=== PATIENT | male | born 1965 | race Caucasian/White ===

== ENCOUNTER 2017-10-06 05:58 | Inpatient (IN) | payer OTHER, MEDICAID ==
[~2017-10-06] VITALS: Ht 175.3 cm; Wt 97.7 kg
[2017-10-06] MEDS ORDERED: AMLO-511 PO (06:21)
[2017-10-06] MEDS ORDERED: FINA5TAB41 PO (06:21)
[2017-10-06 06:50] LABS: BASOPHILS % (AUTO) 0.4 % (0.0-2.0); EOSINOPHILS % (AUTO) 0.2 % (1.0-6.0); HEMATOCRIT 46.7 % (41-53); HEMOGLOBIN 16.3 g/dL (13.5-17.5); LYMPHOCYTES # (AUTO) 0.6 K/uL (1.0-4.8); LYMPHOCYTES % (AUTO) 7.9 % (22.0-44.0); MEAN CORPUSCULAR VOLUME 89 fL (80-100); MONOCYTES # (AUTO) 0.5 K/uL (0.1-1.0); MONOCYTES % (AUTO) 6.5 % (2.0-9.0); NEUTROPHILS # (AUTO) 6.8 K/uL (1.8-7.7); PLATELET COUNT (AUTO) 282 K/uL (150-450); RED BLOOD CELL COUNT(AUTO) 5.28 MIL/uL (4.50-5.90); RED CELL DISTRIBUTION WIDTH 13.4 % (11.5-14.5)
[2017-10-06 07:03] LABS: ANION GAP 11 mmol/L (8-16); CALCIUM, TOTAL 9.2 mg/dL (8.8-10.5); CARBON DIOXIDE 24 mmol/L (22-29); CHLORIDE 106 mmol/L (98-107); CREATININE 1.23 mg/dL (0.60-1.30); GLOMERULAR FILTR. RATE CALC > 60 mL/min (>60); GLUCOSE,RANDOM 118 mg/dL (70-110); POTASSIUM 3.5 mmol/L (3.5-5.1); SODIUM SERUM 141 mmol/L (136-145); UREA NITROGEN, BLOOD 12 mg/dL (7-18)
[2017-10-06 07:08] LABS: ALANINE AMINOTRANSFERASE 39 U/L (12-78); ALBUMIN 4.5 g/dL (3.4-5.0); ALKALINE PHOSPHATASE 111 U/L (46-116); ASPARTATE AMINOTRANSFERASE 32 U/L (15-37); BILIRUBIN,TOTAL 0.6 mg/dL (0.1-1.0); TOTAL PROTEIN, SERUM 9.3 g/dL (6.4-8.2)
[2017-10-06 07:10] LABS: SALICYLATE < 2.8 mg/dL (2.8-20.0)
[2017-10-06 07:20] LABS: AMMONIA 28 umol/L (11-32)
[2017-10-06 07:21] LABS: ACETAMINOPHEN < 2 mcg/mL (10-30); TROPONIN I < 0.02 ng/mL (0.00-0.05)
[2017-10-06 07:34] LABS: B-TYPE NATRIURETIC PEPTIDE 41 pg/mL (0-100)
[2017-10-06 09:06] LABS: AMPHET/METH SCREEN,URINE NEGATIVE (NEGATIVE); BARBITURATE SCREEN, URINE NEGATIVE (NEGATIVE); BENZODIAZEPINES SCREEN,URINE NEGATIVE (NEGATIVE); CANNABINOID SCREEN,URINE NEGATIVE (NEGATIVE); COCAINE SCREEN,URINE NEGATIVE (NEGATIVE); METHADONE SCREEN, URINE NEGATIVE (NEGATIVE); OPIATE SCREEN,URINE NEGATIVE (NEGATIVE)
[2017-10-06 09:07] LABS: PHENCYCLIDINE SCREEN,URINE NEGATIVE (NEGATIVE)
[2017-10-06 09:17] LABS: APPEARANCE,URINE CLOUDY (CLEAR); BILIRUBIN,URINE NEGATIVE (NEGATIVE); GLUCOSE, URINE (UA) NEGATIVE (NEGATIVE); KETONES,URINE NEGATIVE (NEGATIVE); LEUKOCYTE ESTERASE ,URINE NEGATIVE (NEGATIVE); NITRATE,URINE POSITIVE (NEGATIVE); OCCULT BLOOD,URINE MODERATE (NEGATIVE); PROTEIN,URINE POS 1+ (NEGATIVE); UROBILINOGEN,URINE 0.2 mg/dL (<=1.0)
[2017-10-06 09:30] LABS: WBC,URINE 0-2 /HPF (0-5)
[2017-10-06 09:31] LABS: BACTERIA,URINE Many /HPF (None Seen)
[2017-10-06] MEDS: HALOPERIDOL 5 MG TABLET PO ONE ×2 (09:52→10:55)
[2017-10-06] MEDS: DiphenhydrAMINE HCL 25 MG CAPSULE PO ONE ×2 (09:52→10:55)
[2017-10-06] MEDS: LORazepam 2 MG TABLET PO ONE ×2 (09:52→10:55)
[2017-10-06] MEDS ORDERED: LORazepam 2 MG/ML VIAL IM ONE (10:45)
[2017-10-06] MEDS ORDERED: HALOPERIDOL LACTATE 5 MG/ML VIAL IM ONE (10:45)
[2017-10-06] MEDS ORDERED: DiphenhydrAMINE HCL 50 MG/ML VIAL IM ONE (10:45)
[2017-10-06] MEDS ORDERED: CIPROFLOXACIN HCL 250 MG TABLET PO ONE (11:00)
[2017-10-07 05:06] LABS: CHOL/HDL RATIO 3.8 (4.2-7.3)
[2017-10-08 01:30] VITALS: BP 141/81
[2017-10-08] MEDS ORDERED: ONDANSETRON HCL 4 MG TABLET PO PRN (08:45)
[2017-10-08] MEDS ORDERED: BACITRACIN 28.4 GM OINTMENT TP PRN (08:45)
[2017-10-08] MEDS ORDERED: CloNIDine HCL 0.1 MG TABLET PO PRN (08:45)
[2017-10-08] MEDS ORDERED: BENZOCAINE/MENTHOL LOZENGE MM PRN (08:45)
[2017-10-08] MEDS ORDERED: PETROLATUM,WHITE 71 GM JELLY TP PRN (08:45)
[2017-10-08] MEDS ORDERED: MAG HYDROX/AL HYDROX/SIMETH ES 30 ML SUSPENSION UDCUP PO PRN (08:45)
[2017-10-08] MEDS ORDERED: IBUPROFEN 600 MG TABLET PO PRN (08:45)
[2017-10-08] MEDS ORDERED: MAGNESIUM HYDROXIDE SUSPENSION 30 ML UDCUP PO PRN (08:45)
[2017-10-08] MEDS ORDERED: ALBUTEROL SULFATE HFA 90 MCG/PUFF 8 GM INHALER IH PRN (08:45)
[2017-10-08] MEDS ORDERED: LOPERAMIDE HCL 2 MG CAPSULE PO PRN (08:45)
[2017-10-08] MEDS ORDERED: ACETAMINOPHEN 325 MG TABLET PO PRN (08:45)
[2017-10-08] MEDS: FINASTERIDE 5 MG TABLET PO SCH (09:15)
[2017-10-08] MEDS: AmLODIPine BESYLATE 5 MG TABLET PO SCH (09:15)
[2017-10-08] MEDS: OMEPRAZOLE 20 MG CAPSULE PO SCH (09:15)
[2017-10-08] MEDS: NITROFURANTOIN/NITROFURAN MAC 100 MG CAPSULE [MACROBID] PO SCH ×2 (09:15→16:57)
[2017-10-08] MEDS: DOCUSATE SODIUM 100 MG CAPSULE PO SCH (09:15)
[2017-10-08 16:29] VITALS: BP 113/68
[2017-10-09 09:18] VITALS: BP 135/83
[2017-10-09] MEDS: AmLODIPine BESYLATE 5 MG TABLET PO SCH (09:44)
[2017-10-09] MEDS: DOCUSATE SODIUM 100 MG CAPSULE PO SCH (09:44)
[2017-10-09] MEDS: NITROFURANTOIN/NITROFURAN MAC 100 MG CAPSULE [MACROBID] PO SCH ×2 (09:44→19:50)
[2017-10-09] MEDS: OMEPRAZOLE 20 MG CAPSULE PO SCH (09:44)
[2017-10-09] MEDS: FINASTERIDE 5 MG TABLET PO SCH (09:45)
[2017-10-09] MEDS: LORazepam 2 MG TABLET PO PRN (12:30)
[2017-10-09] MEDS: HALOPERIDOL 5 MG TABLET PO PRN (12:30)
[2017-10-09] MEDS ORDERED: HALOPERIDOL LACTATE 5 MG/ML VIAL ONE (12:36)
[2017-10-09] MEDS ORDERED: LORazepam 2 MG/ML VIAL ONE (12:37)
[2017-10-09] MEDS ORDERED: LORazepam 2 MG/ML VIAL IM ONE (12:45)
[2017-10-09] MEDS ORDERED: DiphenhydrAMINE HCL 50 MG/ML VIAL IM ONE (12:45)
[2017-10-09] MEDS ORDERED: HALOPERIDOL LACTATE 5 MG/ML VIAL IM ONE (12:45)
[2017-10-09 18:33] VITALS: BP 116/64
[2017-10-10 09:00] VITALS: BP 140/91
[2017-10-10] MEDS: DOCUSATE SODIUM 100 MG CAPSULE PO SCH (09:53)
[2017-10-10] MEDS: AmLODIPine BESYLATE 5 MG TABLET PO SCH (09:53)
[2017-10-10] MEDS: OMEPRAZOLE 20 MG CAPSULE PO SCH (09:53)
[2017-10-10] MEDS: NITROFURANTOIN/NITROFURAN MAC 100 MG CAPSULE [MACROBID] PO SCH ×2 (09:54→17:00)
[2017-10-10] MEDS: FINASTERIDE 5 MG TABLET PO SCH (09:54)
[2017-10-10 16:42] VITALS: BP 117/62
[2017-10-11] MEDS: OMEPRAZOLE 20 MG CAPSULE PO SCH (08:44)
[2017-10-11] MEDS: DOCUSATE SODIUM 100 MG CAPSULE PO SCH (08:44)
[2017-10-11] MEDS: AmLODIPine BESYLATE 5 MG TABLET PO SCH (08:44)
[2017-10-11] MEDS: NITROFURANTOIN/NITROFURAN MAC 100 MG CAPSULE [MACROBID] PO SCH ×2 (08:45→16:19)
[2017-10-11] MEDS: FINASTERIDE 5 MG TABLET PO SCH (08:45)
[2017-10-11 12:43] VITALS: BP 148/98
[2017-10-11 12:54] VITALS: BP 141/104
[2017-10-11 14:00] VITALS: BP 127/79
[2017-10-11] MEDS: OLANZapine 5 MG RAPDIS TABLET PO SCH (16:19)
[2017-10-11] MEDS: OXcarbazepine 300 MG TABLET PO SCH (16:20)
[2017-10-11] MEDS ORDERED: DiphenhydrAMINE HCL 50 MG/ML VIAL ONE (19:35)
[2017-10-11] MEDS ORDERED: LORazepam 2 MG/ML VIAL ONE (19:35)
[2017-10-11] MEDS ORDERED: DiphenhydrAMINE HCL 50 MG/ML VIAL IM ONE (19:45)
[2017-10-11] MEDS ORDERED: LORazepam 2 MG/ML VIAL IM ONE (19:45)
[2017-10-11] MEDS ORDERED: HALOPERIDOL LACTATE 5 MG/ML VIAL IM ONE (19:45)
[2017-10-12 08:13] VITALS: BP 123/78
[2017-10-12] MEDS: DOCUSATE SODIUM 100 MG CAPSULE PO SCH (08:49)
[2017-10-12] MEDS: FINASTERIDE 5 MG TABLET PO SCH (08:49)
[2017-10-12] MEDS: OMEPRAZOLE 20 MG CAPSULE PO SCH (08:49)
[2017-10-12] MEDS: AmLODIPine BESYLATE 5 MG TABLET PO SCH (08:49)
[2017-10-12] MEDS: OLANZapine 5 MG RAPDIS TABLET PO SCH ×2 (08:49→16:49)
[2017-10-12] MEDS: OXcarbazepine 300 MG TABLET PO SCH ×2 (08:49→16:49)
[2017-10-12] MEDS: NITROFURANTOIN/NITROFURAN MAC 100 MG CAPSULE [MACROBID] PO SCH ×2 (08:49→16:48)
[2017-10-12 17:00] VITALS: BP 126/81
[2017-10-12] MEDS: LORazepam 2 MG TABLET PO PRN (23:43)
[2017-10-12] MEDS: ZOLPIDEM TARTRATE 10 MG TABLET PO PRN (23:43)
[2017-10-13] MEDS: DOCUSATE SODIUM 100 MG CAPSULE PO SCH (08:39)
[2017-10-13] MEDS: OMEPRAZOLE 20 MG CAPSULE PO SCH (08:39)
[2017-10-13] MEDS: OXcarbazepine 300 MG TABLET PO SCH ×2 (08:39→16:37)
[2017-10-13] MEDS: NITROFURANTOIN/NITROFURAN MAC 100 MG CAPSULE [MACROBID] PO SCH ×2 (08:39→16:37)
[2017-10-13] MEDS: OLANZapine 5 MG RAPDIS TABLET PO SCH ×2 (08:39→16:38)
[2017-10-13] MEDS: FINASTERIDE 5 MG TABLET PO SCH (08:39)
[2017-10-13] MEDS: AmLODIPine BESYLATE 5 MG TABLET PO SCH (08:39)
[2017-10-13 10:18] VITALS: BP 134/78
[2017-10-13 16:12] VITALS: BP 109/62
[2017-10-14 05:15] VITALS: BP 142/91
[2017-10-14] MEDS: AmLODIPine BESYLATE 5 MG TABLET PO SCH (08:43)
[2017-10-14] MEDS: FINASTERIDE 5 MG TABLET PO SCH (08:43)
[2017-10-14 08:44] VITALS: BP 146/92
[2017-10-14] MEDS: OLANZapine 5 MG RAPDIS TABLET PO SCH ×2 (08:44→17:00)
[2017-10-14] MEDS: NITROFURANTOIN/NITROFURAN MAC 100 MG CAPSULE [MACROBID] PO SCH ×2 (08:44→17:00)
[2017-10-14] MEDS: OXcarbazepine 300 MG TABLET PO SCH ×2 (08:44→17:00)
[2017-10-14] MEDS: OMEPRAZOLE 20 MG CAPSULE PO SCH (08:44)
[2017-10-14] MEDS: DOCUSATE SODIUM 100 MG CAPSULE PO SCH (08:44)
[2017-10-14] MEDS: HALOPERIDOL 5 MG TABLET PO PRN (10:42)
[2017-10-14] MEDS: LORazepam 2 MG TABLET PO PRN (10:42)
[2017-10-14] MEDS ORDERED: LORazepam 2 MG/ML VIAL IM ONE (13:15)
[2017-10-14] MEDS ORDERED: HALOPERIDOL LACTATE 5 MG/ML VIAL IM ONE (13:15)
[2017-10-14] MEDS ORDERED: HALOPERIDOL LACTATE 5 MG/ML VIAL ONE (13:18)
[2017-10-14] MEDS ORDERED: LORazepam 2 MG/ML VIAL ONE (13:18)
[2017-10-14 16:15] VITALS: BP 132/81
[2017-10-15] MEDS: AmLODIPine BESYLATE 5 MG TABLET PO SCH (08:37)
[2017-10-15] MEDS: DOCUSATE SODIUM 100 MG CAPSULE PO SCH (08:37)
[2017-10-15] MEDS: OXcarbazepine 300 MG TABLET PO SCH ×2 (08:38→16:40)
[2017-10-15] MEDS: OLANZapine 5 MG RAPDIS TABLET PO SCH ×2 (08:38→16:40)
[2017-10-15] MEDS: OMEPRAZOLE 20 MG CAPSULE PO SCH (08:38)
[2017-10-15] MEDS: FINASTERIDE 5 MG TABLET PO SCH (08:38)
[2017-10-15 16:40] VITALS: BP 116/82
[2017-10-15] MEDS: ZOLPIDEM TARTRATE 10 MG TABLET PO PRN (23:53)
[2017-10-16 00:39] VITALS: BP 120/76
[2017-10-16 08:34] VITALS: BP 140/96
[2017-10-16] MEDS: OXcarbazepine 300 MG TABLET PO SCH ×2 (09:55→18:27)
[2017-10-16] MEDS: OLANZapine 5 MG RAPDIS TABLET PO SCH ×2 (09:56→18:27)
[2017-10-16] MEDS: DOCUSATE SODIUM 100 MG CAPSULE PO SCH (09:56)
[2017-10-16] MEDS: OMEPRAZOLE 20 MG CAPSULE PO SCH (09:56)
[2017-10-16] MEDS: AmLODIPine BESYLATE 5 MG TABLET PO SCH (09:56)
[2017-10-16] MEDS: FINASTERIDE 5 MG TABLET PO SCH (09:56)
[2017-10-16 16:56] VITALS: BP 130/83
[2017-10-16] MEDS: ZOLPIDEM TARTRATE 10 MG TABLET PO PRN (23:24)
[2017-10-17 00:17] VITALS: BP 133/88
[2017-10-17 09:12] VITALS: BP 138/92
[2017-10-17] MEDS: DOCUSATE SODIUM 100 MG CAPSULE PO SCH (09:43)
[2017-10-17] MEDS: OLANZapine 5 MG RAPDIS TABLET PO SCH ×2 (09:44→17:27)
[2017-10-17] MEDS: AmLODIPine BESYLATE 5 MG TABLET PO SCH (09:44)
[2017-10-17] MEDS: FINASTERIDE 5 MG TABLET PO SCH (09:44)
[2017-10-17] MEDS: OXcarbazepine 300 MG TABLET PO SCH ×2 (09:44→17:27)
[2017-10-17] MEDS: OMEPRAZOLE 20 MG CAPSULE PO SCH (09:44)
[2017-10-17 18:29] VITALS: BP 140/93
[2017-10-18 02:00] VITALS: BP 132/86
[2017-10-18] MEDS: AmLODIPine BESYLATE 5 MG TABLET PO SCH ×2 (09:00→12:52)
[2017-10-18] MEDS: OMEPRAZOLE 20 MG CAPSULE PO SCH ×2 (09:00→12:52)
[2017-10-18] MEDS: OXcarbazepine 300 MG TABLET PO SCH ×3 (09:00→16:15)
[2017-10-18] MEDS: FINASTERIDE 5 MG TABLET PO SCH ×2 (09:00→12:52)
[2017-10-18] MEDS: OLANZapine 5 MG RAPDIS TABLET PO SCH ×3 (09:00→16:14)
[2017-10-18] MEDS: DOCUSATE SODIUM 100 MG CAPSULE PO SCH ×2 (09:00→12:52)
[2017-10-18 09:52] VITALS: BP 117/77
[2017-10-18 16:22] VITALS: BP 136/98
[2017-10-19 06:21] VITALS: BP 128/80
[2017-10-19] MEDS: OXcarbazepine 300 MG TABLET PO SCH ×2 (09:17→17:53)
[2017-10-19] MEDS: OMEPRAZOLE 20 MG CAPSULE PO SCH (09:17)
[2017-10-19] MEDS: FINASTERIDE 5 MG TABLET PO SCH (09:17)
[2017-10-19] MEDS: OLANZapine 5 MG RAPDIS TABLET PO SCH ×2 (09:17→17:53)
[2017-10-19] MEDS: AmLODIPine BESYLATE 5 MG TABLET PO SCH (09:17)
[2017-10-19] MEDS: DOCUSATE SODIUM 100 MG CAPSULE PO SCH (09:20)
[2017-10-19 09:34] VITALS: BP 119/77
[2017-10-19 16:02] VITALS: BP 125/75
[2017-10-19] MEDS: ZOLPIDEM TARTRATE 10 MG TABLET PO PRN (21:19)
[2017-10-20] MEDS: OXcarbazepine 300 MG TABLET PO SCH ×2 (09:52→16:26)
[2017-10-20] MEDS: OLANZapine 5 MG RAPDIS TABLET PO SCH ×2 (09:52→16:26)
[2017-10-20] MEDS: FINASTERIDE 5 MG TABLET PO SCH (09:52)
[2017-10-20] MEDS: AmLODIPine BESYLATE 5 MG TABLET PO SCH (09:52)
[2017-10-20] MEDS: OMEPRAZOLE 20 MG CAPSULE PO SCH (09:52)
[2017-10-20] MEDS: DOCUSATE SODIUM 100 MG CAPSULE PO SCH (09:53)
[2017-10-20 09:59] VITALS: BP 143/80
[2017-10-20 16:18] VITALS: BP 145/91
[2017-10-20] MEDS: ZOLPIDEM TARTRATE 10 MG TABLET PO PRN (23:37)
[2017-10-21 08:00] VITALS: BP 120/66
[2017-10-21] MEDS: DOCUSATE SODIUM 100 MG CAPSULE PO SCH (10:17)
[2017-10-21] MEDS: OLANZapine 5 MG RAPDIS TABLET PO SCH (10:17)
[2017-10-21] MEDS: OXcarbazepine 300 MG TABLET PO SCH (10:17)
[2017-10-21] MEDS: FINASTERIDE 5 MG TABLET PO SCH (10:17)
[2017-10-21] MEDS: OMEPRAZOLE 20 MG CAPSULE PO SCH (10:17)
[2017-10-21] MEDS: AmLODIPine BESYLATE 5 MG TABLET PO SCH (10:17)
[2017-10-21] MEDS ORDERED: OLAN5TAB40 PO (14:51)
[2017-10-21] MEDS ORDERED: OXCA300T PO (14:51)
[2017-10-21] MEDS ORDERED: OMEP20 PO (14:53)
[2017-10-21] MEDS ORDERED: DSS100 PO (14:53)
== END 2017-10-21 16:20 | disposition home or self-care (01) | DRG 885 ==
LOC: EMS 05:59 → 3EI 10-07 22:00
PROVIDERS: ADMIT Psychiatry & Neurology Psychiatry; ATTEND Psychiatry & Neurology Psychiatry
DX: F29 Unspecified psychosis not due to a substance or known physiological condition (principal); N39.0 Urinary tract infection, site not specified; R47.01 Aphasia; F15.10 Other stimulant abuse, uncomplicated; F31.9 Bipolar disorder, unspecified; F41.9 Anxiety disorder, unspecified; G47.00 Insomnia, unspecified; H54.8 Legal blindness, as defined in USA; H91.90 Unspecified hearing loss, unspecified ear; I10 Essential (primary) hypertension; M19.90 Unspecified osteoarthritis, unspecified site; N40.0 Benign prostatic hyperplasia without lower urinary tract symptoms; S60.416A Abrasion of right little finger, initial encounter; Z86.73 Personal history of transient ischemic attack (TIA), and cerebral infarction without residual deficits; S06.9X0A Unspecified intracranial injury without loss of consciousness, initial encounter; X58.XXXA Exposure to other specified factors, initial encounter; Y93.89 Activity, other specified; Y92.89 Other specified places as the place of occurrence of the external cause; Y99.8 Other external cause status; B96.20 Unspecified Escherichia coli [E. coli] as the cause of diseases classified elsewhere
CPT/HCPCS: 70450; 87086; 93005; 96372; 99285; G0480; G0481; J1200; J1630; J2060